=== PATIENT | male | born 1960 | race African-American/Black ===

== ENCOUNTER 2016-06-21 17:27 | Emergency (ER) | payer OTHER ==
[~2016-06-21] VITALS: Ht 177.8 cm; Wt 72.6 kg
[2016-06-21] MEDS ORDERED: AMLODIPINE BESYL5 MG ORAL (17:38)
[2016-06-21 17:40] VITALS: BP 134/89
[2016-06-21 18:14] LABS: APPEARANCE,URINE VERY CLOUDY; KETONES,URINE 1+ (NEGATIVE); LEUKOCYTE ESTERASE ,URINE 3+ (NEGATIVE); NITRITE,URINE NEGATIVE (NEGATIVE); PH,URINE 5 (4.5-8.0); PROTEIN,URINE 3+ (NEGATIVE); UROBILINOGEN,URINE 4 MG/DL (0.0-1.0)
--- NOTE | 2016-06-21 18:38 | Emergency Room Report ---
History of Present Illness General Chief Complaint: Male Urogenital Problems Source: Patient Present Illness HPI Patient's 55-year-old male who presented after increased hematuria. Patient reported having increased blood in his urine for the past 4 days. This reported have subsequently having a decreased urine output. The patient denied past history of similar symptoms. He denied any flank pain. Patient not been vomiting. He denied any fever. Allergies: Coded Allergies: PENICILLINS (Verified Allergy, Unknown, 06/21/16) Patient History Past Medical History: see triage record Reviewed Nursing Documentation: PMH: Agreed, PSxH: Agreed Nursing Documentation-PMH Past Medical History: No History, Except For Hx Hypertension: Yes Review of Systems All Other Systems: negative except mentioned in HPI Physical Exam Vital Signs Date Time Temp Pulse Resp B/P Pulse Ox O2 Delivery O2 Flow Rate FiO2 06/21/16 17:32 98.2 78 18 121/81 99 Room Air Sp02 EP Interpretation: reviewed, normal General Appearance: normal inspection, well appearing, no apparent distress, alert, GCS 15, non-toxic Head: atraumatic ENT: normal ENT inspection, hearing grossly normal, normal voice Neck: normal inspection, full range of motion, supple, no bony tend Respiratory: normal inspection, lungs clear, normal breath sounds, no respiratory distress, no retraction, no wheezing Cardiovascular #1: regular rate, rhythm, no edema Gastrointestinal: normal inspection, normal bowel sounds, non tender, soft, no guarding, no hernia Genitourinary: no CVA tenderness Musculoskeletal: normal inspection, back normal, normal range of motion Neurologic: normal inspection, alert, oriented x3, responsive, nutrition intern III-XII nml as tested, speech normal Psychiatric: normal inspection, judgement/insight normal, mood/affect normal Skin: normal inspection, normal color, no rash Medical Decision Making Diagnostic Impression: Primary Impression: Gross hematuria Additional Impression: Urinary tract infection ER Course Patient presented for hematuria. Differential diagnoses include was not limited to bladder cancer, stone, coagulopathy, renal cell carcinoma, abdominal aortic aneurysm. Conway catheter was placed. The patient was given oral antibiotics and prescription for antibiotics. Patient was advised followup with urology for recheck in one to 2 days.Patient was advised to return if he began having persistent vomiting high fever or lack of urine output or other concerns Labs Test 06/21/16 17:39 Urine Color Brown Urine Appearance Very cloudy Urine pH 5 (4.5-8.0) Urine Specific [place] 1.020 (1.005-1.035) Urine Protein 3+ (NEGATIVE) Urine Glucose (UA) Negative (NEGATIVE) Urine Ketones 1+ (NEGATIVE) Urine Occult Blood 5+ (NEGATIVE) Urine Nitrite Negative (NEGATIVE) Urine Bilirubin 1+ (NEGATIVE) Urine Urobilinogen 4 MG/DL (0.0-1.0) Urine Leukocyte Esterase 3+ (NEGATIVE) Last Vital Signs Date Time Temp Pulse Resp B/P Pulse Ox O2 Delivery O2 Flow Rate FiO2 06/21/16 17:40 98.0 73 16 134/89 100 Room Air Status: improved Disposition: HOME, SELF-CARE Condition: Stable Scripts Trimethoprim/Sulfamethoxazole 160/800* (BACTRIM DS TABLET*) 1 Each Tablet 1 TAB ORAL Q12H, #20 TAB 0 Refills Prov: Kofi Ramos 06/21/16 Kofi Ramos June 21, 2016 18:38
[2016-06-21 19:11] LABS: ICTOTEST NEGATIVE
[2016-06-21 19:12] LABS: BACTERIA,URINE MODERATE /HPF; RBC,URINE TNTC /HPF (0 - 0); WBC,URINE TNTC /HPF (0 - 0)
[2016-06-21 19:17] VITALS: BP 115/78
[2016-06-21] MEDS ORDERED: BACTRIM DS TAB1 EAC1 ORAL (19:19)
[2016-06-21] MEDS ORDERED: Bactrim DS (160mg/800mg) tab ORAL ONE (19:30)
[2016-06-21 20:07] VITALS: BP 111/78
[2016-06-25] MEDS ORDERED: CIPROFLOXACIN500 M2 ORAL (14:38)
== END 2016-06-21 20:10 | disposition home or self-care (01) ==
LOC: EMR 19:36
DX: R31.0 Gross hematuria (principal); N39.0 Urinary tract infection, site not specified; I10 Essential (primary) hypertension; Z88.0 Allergy status to penicillin
CPT/HCPCS: 81003; 87086; 87181; 99283

== ENCOUNTER 2016-06-24 14:35 | Emergency (ER) | payer OTHER ==
[~2016-06-24] VITALS: Ht 177.8 cm; Wt 72.6 kg
[~2016-06-24 14:35] MED LIST: AMLODIPINE BESYL5 MG ORAL; BACTRIM DS TAB1 EAC1 ORAL
--- NOTE | 2016-06-24 15:29 | Emergency Room Report ---
History of Present Illness General Chief Complaint: Male Urogenital Problems Source: Patient Present Illness HPI 55 YOM returned to ER for matthews cath removal. Was seen here 2 days ago. Had matthews placed by Dr Ramos for gross hematuria, ?thought d/t UTI. Patient taking Bactrim as prescribed. Went to PMD next day. Wasnt able to get Urology referral for another 4 weeks, but appointment was made. Patient demanding Matthews be removed. Denies abd pain, nausea/vomiting, fever/chills. No history of BPH or urinary obstruction. Allergies: Coded Allergies: PENICILLINS (Verified Allergy, Unknown, 06/21/16) Patient History Past Medical History: none Past Surgical History: none Pertinent Family History: none Social History: Denies: alcohol use, drug use, smoking Immunizations: UTD Reviewed Nursing Documentation: PMH: Agreed, PSxH: Agreed Nursing Documentation-PMH Past Medical History: No History, Except For Hx Hypertension: Yes Review of Systems All Other Systems: negative except mentioned in HPI Physical Exam Vital Signs Date Time Temp Pulse Resp B/P Pulse Ox O2 Delivery O2 Flow Rate FiO2 06/24/16 14:59 99.1 83 18 131/83 96 Room Air Sp02 EP Interpretation: reviewed, normal General Appearance: normal inspection, well appearing, no apparent distress, alert, GCS 15, non-toxic Head: normocephalic, atraumatic Eyes: bilateral eye EOMI, bilateral eye PERRL ENT: normal ENT inspection, hearing grossly normal, normal voice Neck: normal inspection, full range of motion, supple, no bony tend Respiratory: normal inspection, lungs clear, normal breath sounds, no respiratory distress, no retraction, no wheezing Cardiovascular #1: regular rate, rhythm, no edema Gastrointestinal: normal inspection, normal bowel sounds, non tender, soft, no guarding, no hernia Genitourinary: no CVA tenderness, other - Matthews in place Musculoskeletal: normal inspection, back normal, normal range of motion, Kaitlin' s Sign negative Neurologic: normal inspection, alert, oriented x3, responsive, swimming pool servicer III-XII nml as tested, motor strength/tone normal, speech normal Psychiatric: normal inspection, judgement/insight normal, mood/affect normal Skin: normal inspection, normal color, no rash Medical Decision Making Diagnostic Impression: Primary Impression: Encounter for Matthews catheter removal Additional Impressions: Urinary tract infection Qualified Codes: N30.01 - Acute cystitis with hematuria Gross hematuria ER Course Matthews removed without incident Advised to complete Abx Keep Urology appointment in 1 month Return to ER for obstruction, other concerns DC home Last Vital Signs Date Time Temp Pulse Resp B/P Pulse Ox O2 Delivery O2 Flow Rate FiO2 06/24/16 14:59 99.1 83 18 131/83 96 Room Air Status: improved Disposition: HOME, SELF-CARE Condition: Improved Patient Instructions: Urinary Tract Infection, Hematuria, Adult Additional Instructions: - Finish ALL antibiotics - Followup with Urologist at scheduled appointment - Return to ER if you have trouble urinating NIKA GARVEY M.D. June 24, 2016 15:29
[2016-06-24 18:51] VITALS: BP 131/83
[2016-06-25] MEDS ORDERED: CIPROFLOXACIN500 M2 ORAL (14:38)
== END 2016-06-24 15:45 | disposition home or self-care (01) ==
LOC: EMR 15:16
DX: Z46.6 Encounter for fitting and adjustment of urinary device (principal); N39.0 Urinary tract infection, site not specified; R31.0 Gross hematuria; I10 Essential (primary) hypertension; Z88.0 Allergy status to penicillin
CPT/HCPCS: 51701; 99284

== ENCOUNTER 2016-12-18 15:03 | Emergency (ER) | payer OTHER ==
[~2016-12-18] VITALS: Ht 177.8 cm; Wt 72.6 kg
[~2016-12-18 15:03] MED LIST changes: +CIPROFLOXACIN500 M2 ORAL
[2016-12-18 15:10] VITALS: BP 153/94
[2016-12-18] MEDS ORDERED: IBUPROFEN600 MG ORAL ×2 (15:10→15:59)
[2016-12-18 15:46] LABS: APPEARANCE,URINE CLEAR; BILIRUBIN, URINE NEGATIVE (NEGATIVE); GLUCOSE, URINE (UA) NEGATIVE (NEGATIVE); KETONES,URINE NEGATIVE (NEGATIVE); LEUKOCYTE ESTERASE ,URINE NEGATIVE (NEGATIVE); NITRITE,URINE NEGATIVE (NEGATIVE); PH,URINE 5 (4.5-8.0); PROTEIN,URINE NEGATIVE (NEGATIVE); UROBILINOGEN,URINE 1 MG/DL (0.0-1.0)
[2016-12-18 15:47] LABS: COLOR,URINE YELLOW
[2016-12-18] MEDS ORDERED: CEPHALEXIN500 MG ORAL (15:59)
[2016-12-18] MEDS ORDERED: CORTISPORIN EAR10 ML RIGHT EAR (15:59)
[2016-12-18 16:04] VITALS: BP 153/94
--- NOTE | 2016-12-18 21:46 | Emergency Room Report ---
History of Present Illness General Chief Complaint: General Complaint Source: Patient Present Illness HPI The patient is a 56-year-old male presenting for 2 complaints. He states that he first experienced ear pain approximately 1 week prior which has been worsening. Described as a 5/10 dull ache and is worse with touch. pain does not radiate.He is also complaining of penile pain. He states that he left a "cock ring" on while sleeping 3 days ago and sustained a laceration to the base of the penis. This pain is a 3/10 burning sensation. Worse with touch. He is concerned for infection. He denies any urinary symptoms including dysuria, hematuria, increased urinary frequency, penile discharge, testicular pain Allergies: Coded Allergies: PENICILLINS (Verified Allergy, Unknown, 06/21/16) Patient History Past Medical History: see triage record Pertinent Family History: none Reviewed Nursing Documentation: PMH: Agreed, PSxH: Agreed Nursing Documentation-PMH Hx Hypertension: Yes Review of Systems All Other Systems: negative except mentioned in HPI Physical Exam Vital Signs Date Time Temp Pulse Resp B/P (MAP) Pulse Ox O2 Delivery O2 Flow Rate FiO2 12/18/16 15:06 97.9 74 16 153/94 100 Room Air Sp02 EP Interpretation: reviewed, normal General Appearance: no apparent distress, alert, GCS 15, non-toxic Head: normocephalic, atraumatic Eyes: bilateral eye normal inspection, bilateral eye PERRL ENT: hearing grossly normal, normal pharynx, no angioedema, normal voice, other - R EAC has edema, erythema, and white DC Neck: full range of motion, supple/symm/no masses Respiratory: chest non-tender, lungs clear, normal breath sounds, speaking full sentences Gastrointestinal: normal bowel sounds, non tender, soft, non-distended, no guarding, no rebound Genitourinary: penis normal - There is a semicircular lesion at the superior aspect at the base of the penis., scrotum normal Musculoskeletal: back normal, gait/station normal, normal range of motion, non- tender Neurologic: alert, oriented x3, responsive, motor strength/tone normal, sensory intact, speech normal Psychiatric: judgement/insight normal, memory normal, mood/affect normal, no suicidal/homicidal ideation Skin: normal color, no rash, warm/dry, well hydrated Medical Decision Making PA Attestation Dr. sahu is my supervising physician. Patient management was discussed with my supervising physician Diagnostic Impression: Primary Impression: Cellulitis Qualified Codes: L03.90 - Cellulitis, unspecified Additional Impression: Otitis externa Qualified Codes: H60.331 - Swimmer's ear, right ear ER Course The patient is a 56-year-old male presenting for ear pain and possible skin infection Differential diagnoses considered but not limited to: Otitis externa, otitis media, mastoiditis Differential diagnoses considered but not limited to: Cellulitis, abscess, urinary tract infection, epididymitis, STD Physical exam: Vitals are within normal limits per no apparent distress HEENT: R ear external auditory canal is erythematous and edematous. White discharge is noted. Tympanic membrane is intact. No bulging. There is no cervical lymphadenopathy. Skin: There is a semicircular lesion at the superior aspect at the base of the penis. Does not extend through dermis. There is mild erythema surrounding this. Tenderness to palpation is noted. No bleeding or discharge Otherwise exam is unremarkable The patient will be discharged home with a prescription for Cortisporin for the ear and keflex for the penile skin infection ER precautions given Last Vital Signs Date Time Temp Pulse Resp B/P (MAP) Pulse Ox O2 Delivery O2 Flow Rate FiO2 12/18/16 16:04 97.9 78 16 153/94 100 Room Air Status: improved Disposition: HOME, SELF-CARE Condition: Improved Scripts Neomycin/Polymyxin B Sulf/Hc* (CORTISPORIN EAR SOLUTION*) 10 Ml Solution 4 DROP RIGHT EAR QID, #10 ML 0 Refills Prov: TERZIAN,MICHAEL P.A. 12/18/16 Cephalexin* (KEFLEX*) 500 Mg Capsule 500 MG ORAL EVERY 12 HOURS, #14 CAP 0 Refills Prov: TERZIAN,MICHAEL P.A. 12/18/16 Ibuprofen* (MOTRIN*) 600 Mg Tablet 600 MG ORAL Q8H Y for For Pain, #30 TAB 0 Refills Prov: TERZIAN,MICHAEL P.A. 12/18/16 Referrals: MEGHAN BIGGS,REFERRING (PCP) Additional Instructions: I discussed my findings with the patient. All questions and concerns have been answered. Treatment and medication compliance have been addressed. I advised the patient that they need to follow up with PMD in 3-5 days. Return to ED if symptoms worsen, new symptoms arise, or if needed for any reason. Patient verbalized understanding of discharge instructions. MICHAEL MOLINA Dec 18, 2016 21:46
== END 2016-12-18 16:31 | disposition home or self-care (01) ==
LOC: EMR 16:06
DX: H60.331 Swimmer's ear, right ear (principal); L03.90 Cellulitis, unspecified; I10 Essential (primary) hypertension; Z88.0 Allergy status to penicillin
CPT/HCPCS: 81003; 99283